=== PATIENT | male | born 1955 | race Caucasian/White ===

== ENCOUNTER → 2023-07-18 | Day surgery (SDC) | payer MEDICARE ==
[2023-07-13 15:42] VITALS: BMI 29.5
[~2023-07-18] MED LIST: PROPOFOL 10 MG/ML 20 ML VIAL IV ONE
[2023-07-18 11:09] VITALS: TEMP 98.4
[2023-07-18] MEDS: LIDOCAINE 1% (10MG/ML) FOR IV START INTRADERMA PRN (11:09)
[2023-07-18] MEDS: LACTATED RINGERS 1,000 ML IV SCH (11:09)
[2023-07-18] MEDS: IV FLUID CONTINUATION 1,000 ML IV ONE (11:10)
[2023-07-18 11:22] LABS: Glucose,Whole Blood 171 mg/dL (70-110)
--- NOTE | 2023-07-18 11:23 | P.GSHP ---
History of Present Illness H&P Date: 07/18/23 Chief Complaint: Colon cancer screening 68-year-old male here today for colonoscopy. Last colonoscopy 11 years ago. No bowel complaints. No family history of colon cancer. History of prior hemorrhoid surgery. Past Medical History Past Medical History: Diabetes Mellitus, Hyperlipidemia, Hypertension, Osteoarthritis (OA) Additional Past Medical History / Comment(s): Type II diabetic NIDDM, Hx kidney stones History of Any Multi-Drug Resistant Organisms: None Reported Additional Past Surgical History / Comment(s): Colonoscopy-hemrrhoids removed. Past Anesthesia/Blood Transfusion Reactions: No Reported Reaction Additional Past Anesthesia/Blood Transfusion Reaction / Comment(s): No hx of blood transfusion. Smoking Status: Former smoker - Past Family History Father Family Medical History: No Reported History Medications and Allergies Home Medications Medication Instructions Recorded Confirmed Type Amlodipine-Benazepril 10 - 40 mg PO QAM 07/13/23 07/13/23 History Atorvastatin [Lipitor] 20 mg PO HS 07/13/23 07/13/23 History Pioglitazone [Actos] 30 mg PO QAM 07/13/23 07/13/23 History glipiZIDE [Glucotrol] 10 mg PO BID 07/13/23 07/13/23 History metFORMIN HCL [Glucophage] 500 mg PO BID 07/13/23 07/13/23 History traMADol HCL 50 mg PO BID PRN 07/13/23 07/13/23 History Allergies Allergy/AdvReac Type Severity Reaction Status Date / Time No Known Allergies Allergy Verified 07/18/23 10:58 Surgical - Exam Vital Signs Temp Pulse Resp BP Pulse Ox 98.4 F 99 16 165/83 98 07/18/23 11:07 07/18/23 11:07 07/18/23 11:07 07/18/23 11:07 07/18/23 11:07 Physical exam: General: Well-developed, well-nourished HEENT: Normocephalic, sclerae nonicteric Abdomen: Nontender, nondistended Extremities: No edema Neuro: Alert and oriented Results - Labs Abnormal Lab Results - Last 24 Hours (Table) 07/18/23 Range/Units 11:13 POC Glucose (mg/dL) 171 H (70-110) mg/dL Assessment and Plan (1) Colon cancer screening Narrative/Plan: Will proceed with colonoscopy at this time. Current Visit: Yes Status: Acute Code(s): Z12.11 - ENCOUNTER FOR SCREENING FOR MALIGNANT NEOPLASM OF COLON SNOMED Code(s): 323193439
--- NOTE | 2023-07-18 11:38 | P.PCN ---
Date of Procedure: 07/18/23 Procedure(s) Performed: PREOPERATIVE DIAGNOSIS: Colon cancer screening POSTOPERATIVE DIAGNOSIS: Rectal polyp, diverticulosis PROCEDURE: Colonoscopy with snare polypectomy ANESTHESIA: MAC SURGEON: Bryon Rivera M.D. SPECIMENS: Rectal polyp ENDOSCOPIC PROCEDURE: The patient was placed on the endoscopy table in the left decubitus position. The Olympus colonoscope was inserted into the anus and passed under direct visualization to the base of the cecum. The appendiceal orifice was visualized. From that point the scope was slowly withdrawn inspecting all surfaces carefully. There were no neoplastic inflammatory or polypoid lesions throughout the cecum, ascending, transverse, descending, and sigmoid colon. In the rectum a small polyp was seen and removed using the snare with cautery technique. Patient's prep was slightly suboptimal. The patient had mild left-sided diverticulosis. Digital rectal examination was normal. The patient was taken to the recovery room in stable condition per anesthesia guidelines. RECOMMENDATIONS: Await biopsy results. Repeat colonoscopy pending pathology.
[2023-07-18 12:00] VITALS: BP 150/82; PULSE 78; RESP 16
== END ==
LOC: ORWHC2ENDO 10:38
PROVIDERS: ATTEND Surgery
DX: Z12.11 Encounter for screening for malignant neoplasm of colon (principal); K57.30 Diverticulosis of large intestine without perforation or abscess without bleeding; K62.1 Rectal polyp; E11.9 Type 2 diabetes mellitus without complications; E78.5 Hyperlipidemia, unspecified; I10 Essential (primary) hypertension; M19.90 Unspecified osteoarthritis, unspecified site; Z79.84 Long term (current) use of oral hypoglycemic drugs; Z87.891 Personal history of nicotine dependence; Z79.899 Other long term (current) drug therapy
CPT/HCPCS: 45385; 88305